=== PATIENT | female | born 1985 | race Caucasian/White ===

== ENCOUNTER 2024-05-27 06:49 | Emergency (ER) | payer BC, SELFPAY ==
[2024-05-27 06:56] VITALS: BP 121/81
--- NOTE | 2024-05-27 08:17 | ED.GENMED ---
History of Present Illness
General
Chief Complaint: Numbness
Source: patient and significant other
Exam Limitations: none
Time Seen by Provider: 05/27/24 08:04
Nursing documentation reviewed up to this point in time: agreed with
History of Present Illness
History of Present Illness:
39-year-old female presents emergency room with due to left index finger swelling, and left leg pain. Left leg pain began 3 days ago, starts in her chacko and sometimes radiates to her thigh. Her left index finger swelling began yesterday. She
denies injury.
Past History
Past History
ED Past Medical History: Other (Heart block)
ED Past Surgical History: None
Social History
Tobacco: Non-smoker
Alcohol: None
Drug: None
Personal: Partner
Living: with family
Employment: Employed
Review of Systems
Review of Systems
Allergies reviewed?: Yes
All Other Systems: Not applicable
Constitutional: Reports no symptoms
EENT: Reports no symptoms
Respiratory: Reports no symptoms
Cardiac: Reports no symptoms
ABD/GI: Reports no symptoms
: Reports no symptoms
Musculoskeletal: Reports joint swelling and muscle pain
Skin: Reports no symptoms
Neurological: Reports no symptoms
Endocrine: Reports no symptoms
Hematologic/Lymphatic: Reports no symptoms
Psychiatric: Reports no symptoms
Phy Exam
Physical Exam
Physical Exam:
Physical Exam
General: no apparent distress, not acutely ill
Neck: supple. no meningeal signs. normal posterior pharynx
Heart: s1/s2 regular rate and rhythm, no murmur. equal radial
pulses.
HEENT: Pupils equal round reactive to light, EOMI
Lungs: no acute respiratory distress. clear bilaterally
Abdomen: normal bowel sounds. not tender. no CVAT
Neuro: alert and oriented. no focal neurological deficits cranial nerves II through XII intact
Skin: no rash
Psychiatric: well kept. interactive and cooperative
Extremities: no edema. no calf tenderness. negative homans. good distal pulses, mild left index finger swelling, tender to palpation, full range of motion, left chacko tender to palpation
Course
Orders/Labs/Results
Orders:
Orders
05/27/24 08:16
US Periph Venous UPPER Ext LT Urgent
Comment:
Reason For Exam: left hand swelling
05/27/24 08:24
Tib/Fib, Left 2 View [CR Leg Tibia/fibula Left 2 Vw] Urgent
Comment:
Reason For Exam: left chacko pain
Legs, left US [US Periph Venous LOWER Ext LT] Urgent
Comment:
Reason For Exam: left leg pain
Vital Signs
Initial and Last Documented VS:
Initial Vital Signs
Temp Pulse Resp BP Pulse Ox
98.1 F 81 16 121/81 98
05/27/24 06:56 05/27/24 06:56 05/27/24 06:56 05/27/24 06:56 05/27/24 06:56
Last Documented Vital Signs
Temp Pulse Resp BP Pulse Ox
98.1 F 81 16 110/64 100
05/27/24 06:56 05/27/24 06:56 05/27/24 06:56 05/27/24 09:58 05/27/24 09:59
MDM/Problems Addressed
Differential Diagnosis Includes:
Cellulitis, DVT
MDM/Problems Addressed:
39-year-old female with index finger swelling, left lower leg pain, likely shinsplints. X-ray and ultrasounds negative. No signs of flexor tendon synovitis. Treat with Keflex. Follow-up with primary care. Return precautions given.
*Radiology
Radiology exam reviewed: radiology read reviewed (X-ray left tib-fib normal, ultrasound left upper and lower extremity no acute findings, no DVT)
*Pulse Oximetry
Patient hypoxic: no
*Critical Care Note
Total Time (30-74mins, 75-104mins- exclusive of procedures): Not Applicable
Patient Management
Social determinants of health affecting care: Living situation and Strong social support
Escalation/DeEscalation of care consider admission/obs:
Admit not indicated
ED Attending Note
-
Portions of this chart may have been created with voice recognition software.� Occasional wrong word or��sound alike� substitutions may have occurred due to the inherent limitations of voice recognition software.
Discharge Plan
Departure
Patient Disposition: Home (Routine Discharge)
Date of Disposition: 05/27/24
Time of Disposition: 10:50
Patient with high blood pressure during this ER visit?: No
Condition: Good
Discharge Problem:
Swelling of left index finger, Pain in left lower leg
Instructions: Swollen Joints (DC)
Prescriptions:
New
cephalexin 500 mg capsule
500 mg PO TID 7 Days Qty: 21 0RF
Referrals:
Yo Vinson MD [Family Provider] - Call in 1-3 days for appt
Interventions
Interventions:
*Risk Screen - Suicide Last Done: 05/27/24 06:56
*General Assessment Last Done: 05/27/24 09:54
*Neglect/Abuse Screening Last Done: 05/27/24 06:56
ED- Fall Risk Assessment Last Done: 05/27/24 10:30
*ED COVID-19 Vaccine History Last Done: 05/27/24 09:54
ED- Neurological Assessment Last Done: 05/27/24 08:26
Discharge Date and Time
Print Language: MONGOLIAN
[2024-05-27 09:58] VITALS: BP 110/64
[2024-05-27 09:59] VITALS: BMI 23.3
== END 2024-05-27 11:26 | disposition home or self-care (01) ==
LOC: EMR 06:49
PROVIDERS: EMERGENCY PHYSICIAN Emergency Medicine; FAMILY PHYSICIAN Internal Medicine
DX: M79.662 Pain in left lower leg (principal); M79.89 Other specified soft tissue disorders
CPT/HCPCS: 99284; 73590; 93971